=== PATIENT | female | born 1990 | race Caucasian/White ===

== ENCOUNTER → 2018-01-28 | Outpatient (CLI) | payer BC, OTHER ==
[~2018-01-28] MED LIST: PRENTAB26 PO
== END | disposition home or self-care (01) ==
LOC: C.LABSPEC 17:28
PROVIDERS: ATTEND Physician Assistant
DX: R39.9 Unspecified symptoms and signs involving the genitourinary system (principal)

== ENCOUNTER 2020-06-10 18:34 | Inpatient (IN) ==
[2020-06-10] MEDS ORDERED: OXYTOCIN 30 UNITS/500 ML BAG IV PRN ×2 (19:19→21:12)
[2020-06-10] MEDS ORDERED: LACTATED RINGER'S 1,000 ML IV PRN (19:19)
--- NOTE | 2020-06-10 19:22 | History & Physical Report ---
Date of Service June 10, 2020 Assessment & Plan (1) : Admit to L&D. EFM/Platter, labs, COVID swab, IV. Anticipate . Undecided about epidural. History of Present Illness Chief Complaint: labor Primary Care Provider: BHARATHI PCP 29yo @ 39 10/22, spontaneous labor. Rupture of membranes for clear fluid after arrival here, approx 7:10pm. Ctx every 4 min. complicated by: and Delivery Plans GDM (ON INSULIN IN PRIOR ) *Begin monthly AC Us's @24wks Obesity--growth u/s done at 36wks and AGA Hx Herpes *valtrex @ 36wks Previous PTB. accepts Valentine Flu shot given at her work Allergies Allergy/AdvReac Type Severity Reaction Status Date / Time Penicillins Allergy Intermediate Unknown Verified 06/08/20 10:31 amoxicillin Allergy Unknown RASH Verified 06/08/20 10:31 Home Medications Medication Instructions Recorded Confirmed Type valacyclovir 500 mg tablet 500 mg PO DAILY #30 tab 05/12/20 06/10/20 Rx vit no.[id number] 1 tab PO DAILY 06/10/20 06/10/20 History [ Vitamin] Patient History Medical History Abdominal pain Diverticulitis Early stage of Encounter for anatomic survey GDM (gestational diabetes mellitus) Gestational diabetes Gestational diabetes mellitus (GDM) affecting Hx of varicella Infertility Kidney stones Migraines PCOS (polycystic ovarian syndrome) premature rupture of membranes Surgical History No pertinent past surgical history Family History Grandmother (Maternal) Diabetes Grandfather (Paternal) Diabetes Other Family history non-contributory Denies family history of Ovarian cancer Breast cancer Colorectal cancer Social History Smoking Status: Never smoker Hx Alcohol Use: No Hx Substance Use: No Preferred Language: Bulgarian Communication Ability: Effective Beliefs That Will Affect Care: None marital status: marital status details: Bismark Tigre (40) [phone] Current Living Situation: Spouse Current Living Situation Comment: lives with family, 1 dog and 1 cat, does not change litter current occupational status: employed current occupation: RN- infection prevention at Feels Safe at Home: Yes Safety Concerns: Feels Safe At This Time Assistive Devices: None Review of Systems All systems reviewed & are unremarkable except as noted in HPI & below Physical Exam Physical Exam: No obvious HSV lesions. Constitutional: WD/WN, vitals as above Respiratory: normal respiratory effort, lungs clear to auscultation no respiratory distress Cardiovascular: Rate/Rhythm: regular rate and regular rhythm Gastrointestinal (Abdomen): Inspection/Auscultation: abdomen normal to inspection Percussion/Palpation: abdomen soft; abdomen nontender Gravid. No s/s chorio or abruption. Skin: no rashes, warm and dry Psychiatric: A+Ox3, euthymic affect Results & Data ([facility]) Vital Signs (Past 12 Hours) Vital Signs Pulse BP 06/10/20 19:17 88 126/81 06/10/20 18:53 81 122/78 Monitoring External Monitor Cat 1, Platter Q 2-4 Coding Level of Care Code None Diagnoses Z34.90
[2020-06-10 19:42] LABS: Hematocrit (blood only) 38.7 % (37-47); Hemoglobin 13.1 g/dL (12.0-16.0); Mean Corpuscular Hemoglobin 30.2 pg (25-34); Mean Corpuscular Hgb Conc 33.9 g/dL (32-36); Mean Corpuscular Volume 89.2 fL (80-100); Mean Platelet Volume 10.8 fL (7.4-10.4); Platelet Count 203 K/uL (130-400); RDW Coefficient of Variation 13.9 % (11.5-14.5); RDW Standard Deviation 45.5 fL (36.4-46.3); Red Blood Count 4.34 M/uL (4.2-5.4); White Blood Count 9.14 K/uL (4.8-10.8)
[2020-06-10] MEDS ORDERED: LIDOCAINE HCL 1% 20 ML VIAL ONE (20:21)
--- NOTE | 2020-06-10 20:35 | Delivery Summary ---
Vaginal Delivery Summary Date of Service June 10, 2020 Vaginal Delivery Summary and 1st Degree LAC Vaginal Delivery Summary: Pre-delivery diagnoses: 29yo @ 39 5/7, spontaneous labor, GDMA1, h/o HSV (no current outbreak), h/o delivery Post-delivery diagnoses: same, shoulder dystocia (mild), 1st degree perineal laceration Procedure: spontaneous vaginal delivery, McRobert's maneuver, shoulder rotation, delivery of posterior shoulder Surgeon: Sara Beckman DO Complications: none Findings: Viable female . Apgars: 8/9. Weight pending, please see nursery records. Estimated blood loss: 300ml Description of delivery: The patient progressed to complete without anesthesia. She then began to push. She spontaneously vaginally delivered a viable from the cephalic presentation. The head delivered in NICHOLAS position. The ante rior shoulder did not deliver immediately. The head was allowed to restitute. The anterior shoulder was directly perpendicular to pubic bone. The patient was repositioned in McRobert's Maneuver, with knees back and wide open. This seemed to free more space posteriorly, and then the press machine operator's hand was inserted posteriorly to rotate the baby in a counter-clockwise motion, which freed the anterior shoulder. The posterior shoulder was close to delivery, so this was delivered first, followed by the anterior shoulder, followed by the body. No nuchal cord. The baby was placed on mother's abdomen and the cord was doubly clamped and cut. A segment was retained for cord gases. Cord blood was obtained. The placenta was delivered spontaneously intact with a 3-vessel cord. The uterus and vagina were swept of clots and debris. IV pitocin was given. The uterus became firm. The cervix, vagina, and perineum were inspected and a hemostatic first degree perineal lacerations was noted. Patient elected not to repair this. Excellent hemostasis was observed. The mother and baby are recovering in stable and good condition in the room. Sponge and instrument counts were correct x 2. Sara Beckman DO [facility] [place] Vaginal Delivery Charge Vaginal Delivery Codes: 39793 global code for the antepartum, delivery, and post-
[2020-06-10 20:53] LABS: Base Excess Cord Arterial Bld 0.6 mEq/L (-9-1.8); CO2 Cord Arterial Blood 47 mmHg (39.1-73.5); HCO3 Cord Arterial Blood 26 mmol/L (19.7-28.5); PO2 Cord Arterial Blood 26 mmHg (4.1-31.7); pH Cord Arterial Blood 7.37 (7.1-7.38)
[2020-06-10 20:57] LABS: Base Excess Cord Venous Blood 0.7 mEq/L (-7.7-1.9); Cord Venous Blood HCO3 26 mmol/L (18.4-26.8); Cord Venous Blood PCO2 42 mmHg (30.4-57.2); Cord Venous Blood PO2 32 mmHg (14.1-43.3)
[2020-06-10] MEDS ORDERED: oxyCODONE/ACETAMINOPHEN 5mg/325mg TAB PO PRN (21:12)
[2020-06-10] MEDS ORDERED: HYDROCORTISONE ACETATE 25 MG SUPP PR PRN (21:12)
[2020-06-10] MEDS ORDERED: bisacodyL 10 MG SUPP PR PRN (21:12)
[2020-06-10] MEDS ORDERED: DIPHTHERIA/TETANUS/PERTUSSIS 0.5 ML SYR/VIAL IM ONE (21:12)
[2020-06-10] MEDS ORDERED: SUPERCREAM 0.870% 15 GM JAR EXT PRN (21:12)
[2020-06-10] MEDS ORDERED: ACETAMINOPHEN 325 MG TAB PO PRN (21:12)
[2020-06-10] MEDS ORDERED: BENZOCAINE 20% AER SPR 82.5 GM CAN EXT PRN (21:12)
[2020-06-10] MEDS: IBUPROFEN 600 MG TAB PO PRN (21:19)
[2020-06-10] MEDS: DOCUSATE SODIUM 100 MG CAP PO SCH (22:57)
[2020-06-11] MEDS: IBUPROFEN 600 MG TAB PO PRN ×4 (05:10→21:28)
--- NOTE | 2020-06-11 06:13 | Obstetrical Progress Note ---
Date of Service June 11, 2020 Assessment & Plan (1) Diet controlled gestational diabetes mellitus (GDM), antepartum: PPD#1 doing well. Continue routine care. Anticipate DC home tomorrow. (2) : Subjective Ambulation: ambulating normally Voiding: no voiding problems Diet Tolerance:: regular diet Lochia:: Moderate Feeding Type:: breast feeding PPD#1 doing well. Review of Systems All systems reviewed & are unremarkable except as noted in HPI & below Physical Exam Constitutional WD/WN, vitals as above no acute distress Respiratory normal respiratory effort Cardiovascular Rate/Rhythm: regular rate and regular rhythm Gastrointestinal (Abdomen) Inspection/Auscultation: abdomen normal to inspection; abdomen not distended Percussion/Palpation: abdomen soft Genitourinary OB Exam Abdomen: + fundal height Fundus: + firm; not tender Results & Data ([facility]) Vital Signs (Past 12 Hours) Vital Signs Temp Pulse Pulse Resp BP BP Pulse Ox 06/11/20 03:35 36.5 C 76 18 111/72 97 06/10/20 23:50 37.0 C 81 20 111/71 96 06/10/20 22:42 79 128/69 06/10/20 22:29 82 117/64 06/10/20 22:14 88 107/62 06/10/20 22:13 36.8 C 20 06/10/20 21:59 84 105/59 L 06/10/20 21:44 72 111/64 06/10/20 21:43 16 06/10/20 21:29 76 108/60 06/10/20 21:14 76 115/73 06/10/20 21:13 18 06/10/20 20:59 81 110/74 06/10/20 20:58 18 06/10/20 20:47 74 119/73 06/10/20 20:43 18 06/10/20 20:28 36.9 C 82 20 153/71 H 06/10/20 20:02 71 132/73 06/10/20 20:00 20 06/10/20 19:48 74 141/83 H 06/10/20 19:32 75 120/74 06/10/20 19:30 18 06/10/20 19:17 88 126/81 06/10/20 19:05 20 06/10/20 18:53 81 122/78
[2020-06-11 06:32] LABS: Hemoglobin 12.4 g/dL (12.0-16.0)
[2020-06-11] MEDS ORDERED: PRENATAL VITAMIN 1 TAB PO SCH (08:00)
[2020-06-11] MEDS: PRENATAL VITAMIN 1 TAB PO SCH (08:14)
[2020-06-11] MEDS: DOCUSATE SODIUM 100 MG CAP PO SCH ×2 (08:14→21:27)
[2020-06-11] MEDS ORDERED: bisacodyL 5 MG TABEC PO SCH (20:00)
--- NOTE | 2020-06-12 04:27 | Obstetrical Progress Note ---
Date of Service <Nicolas Syed MD - Last Filed: 06/12/20 07:21> June 12, 2020 Assessment & Plan <Nicolas Syed MD - Last Filed: 06/12/20 07:21> (1) state: 29 y/o s/p at 39w5d on 06/10/20, PPD2. A+. Rubella immune. Stable. - Meeting milestones. Ambulation, voiding, +BM, eating. Lochia improving. - without issues. - H/H on 06/11/20 (PPD1) reasonable. Hb 13.1->12.4 pre vs post delivery. - hx genital herpes (no outbreak since 2013). Valtrex 36 wks gestation onward, since discontinued - continue routine care - dispo today (2) GDM (gestational diabetes mellitus): - diet controlled during this - prior required insulin - no further action at this time Subjective <Nicolas Syed MD - Last Filed: 06/12/20 07:21> Ambulation: ambulating normally Voiding: no voiding problems Passing Gas:: Yes Diet Tolerance:: regular diet Feeding Type:: breast feeding (no issues) Current Pain Level(1-10): 0 Feeling good overall and no acute complaints. Lochia is small-moderate, improving. No current pain. 4/10 uterine cramping at worse, i.e. when . Review of Systems Denies fever, chills, sweats Denies shortness of breath, chest pain, palpitations. Denies breast pain. Denies dysuria. Denies headache or changes in vision. Denies nausea/vomiting. Denies numbness, tingling, weakness. Physical Exam <Nicolas Syed MD - Last Filed: 06/12/20 07:21> General: Alert, oriented. No acute distress. Cardiac: Regular rate and rhythm, no murmurs/rubs/gallops. Respiratory: Clear to auscultation bilaterally, no wheezes/rales/rhonchi. No respiratory distress. Abdomen: , soft, nontender. Uterus: Uterine fundus firm, palpable 1cm below umbilicus. Lower Extremities: Trace LE edema. No deep calf pain. Tiana's negative bilaterally. Results & Data ([facility]) <Nicolas Syed MD - Last Filed: 06/12/20 07:21> Vital Signs (Past 12 Hours) Vital Signs Temp Pulse Resp BP Pulse Ox 06/12/20 00:05 36.6 C 63 18 109/67 97 06/11/20 19:26 36.3 C L 74 16 118/78 94 Medications Administered <Maxx Connors Jr, MD, FACOG - Last Filed: 06/12/20 07:36> Co-Signing Physician Notes Resident Physician Supervision Note: I was present with Dr. Syed during the history and exam. I discussed the case with the resident and agree with the findings and plan as documented in the note. Any exceptions or clarifications are listed here: Patient weeks for pp check Documented By: Maxx Connors Jr, MD, FACOG Resident Activity Tracking <Nicolas Syed MD - Last Filed: 06/12/20 07:21> Resident Involvement: Resident Care Provided Care Provided: OB Delivery
[2020-06-12] MEDS: DOCUSATE SODIUM 100 MG CAP PO SCH (08:01)
[2020-06-12] MEDS: PRENATAL VITAMIN 1 TAB PO SCH (08:01)
== END 2020-06-12 10:40 | disposition home or self-care (01) | DRG 807 ==
LOC: 4S1 18:34 → OPB 18:34 → 4S1 19:19 → 4S2 23:00